=== PATIENT | female | born 1995 | race Caucasian/White ===

== ENCOUNTER → 2019-10-16 15:51 | Outpatient (CLI) | payer OTHER, SELFPAY ==
--- NOTE | 2019-10-16 | DI.MRI.S_ITS ---
PROCEDURE: MR ANKLE LT WO CON INDICATIONS: LATERAL LEFT ANKLE PAIN TECHNIQUE: Noncontrast sagittal T1 spin echo and T2 fast spin echo with fat saturation, axial proton density fast spin echo and T2 fast spin echo with fat saturation, coronal T1 spin echo and T2 fast spin echo with fat saturation through the ankle/hindfoot. COMPARISON: None. FINDINGS: Image quality: Excellent. Bones and joints: No bone marrow contusions or fractures. No hindfoot coalitions. No osteochondral injuries of the talar dome. No pathologic joint effusions. Medial structures: The posterior tibialis, flexor digitorum longus, and flexor hallucis longus tendons are intact. The posterior tibial neurovascular bundle appears normal within the tarsal tunnel, without extrinsic mass effect. The deep layer (anterior and posterior tibiotalar ligaments) and superficial layer (tibionavicular, tibiospring, and tibiocalcaneal ligaments) of the deltoid ligament appear normal. The spring ligament components (superomedial calcaneonavicular, medioplantar oblique calcaneonavicular, and inferoplantar longitudinal ligaments) are intact. Lateral structures: The anterior talofibular, calcaneofibular, and posterior talofibular ligaments appear mildly thickened with intrasubstance T2 hyperintense signal More superiorly, the anterior and posterior tibiofibular ligaments also appears thickened with heterogeneous intrasubstance signal. The tibiofibular syndesmosis is normal in width at 2 mm or less. The peroneus longus and brevis tendons demonstrate a small amount of fluid distending the tendon sheath suggestive of very low-grade tenosynovitis. Adjacent bony peroneal tubercle and retrotrochlear prominence are normal in size. The sinus tarsi demonstrates normal fatty signal, without edema, fibrosis, or cyst formation. Visualized sinus tarsi components (cervical ligament, interosseous talocalcaneal ligament, roots of the inferior extensor retinaculum) appear normal. The calcaneonavicular and calcaneocuboid components of the bifurcate ligament appear intact. The dorsal calcaneocuboid ligament appears intact. Anterior structures: The tibialis anterior, extensor hallucis longus, and extensor digitorum longus tendons appear intact. The dorsal talonavicular ligament appears intact. Posterior and plantar structures: Achilles tendon is intact. Medial and lateral bands of the plantar fascia are of normal thickness. No abductor digiti quinti muscle atrophy to suggest Montiel neuropathy. IMPRESSION: 1. Findings suggestive of low-grade sprain/partial thickness involving lateral ankle ligaments. Ankle mortise is congruent. No widening of distal tibiofibular syndesmosis. 2. Very low-grade tenosynovitis involving peroneus tendons. Rest of the ankle tendons are intact. 3. No marrow edema. No fracture or dislocation. Dictated by: Patrick Aquino M.D. on 10/17/2019 at 10:04 Approved by: Patrick Aquino M.D. on 10/17/2019 at 10:14
== END ==
PROVIDERS: Referring Provider Radiology Diagnostic Radiology; Visit Provider Radiology Diagnostic Radiology
DX: S99.922A Unspecified injury of left foot, initial encounter (principal); M25.572 Pain in left ankle and joints of left foot; X58.XXXA Exposure to other specified factors, initial encounter
CPT/HCPCS: 73721

== ENCOUNTER 2020-12-05 10:56 | Emergency (ER) | payer OTHER, SELFPAY ==
[2020-12-05 11:21] VITALS: BP 122/78; PULSE 86; RESP 16; TEMP 37; O2SAT 98; BMI 30.2
--- NOTE | 2020-12-05 11:21 | DI.RAD.S_ITS ---
PROCEDURE: XR FINGER RT MIN 2V INDICATIONS: slammed in car door TECHNIQUE: AP hand, 2 views of the thumb acquired. COMPARISON: None. FINDINGS: Bones: No fractures or dislocations. No suspicious bony lesions. Soft tissues: No suspicious soft tissue calcifications. IMPRESSION: No acute bony abnormality. Dictated by: Barry Stallings M.D. on 12/05/2020 at 10:36 Approved by: Barry Stallings M.D. on 12/05/2020 at 10:39
--- NOTE | 2020-12-05 12:28 | ED.UPPEXIN ---
HPI - Extremity Injury (Upper) General Chief Complaint: Extremity Injury, Upper Stated Complaint: smashed right thumb in car door Time Seen by Provider: 12/05/20 12:09 Source: patient Mode of arrival: Ambulatory Limitations: no limitations History of Present Illness HPI narrative: Patient is a 25-year-old female who presents with right thumb pain. She slammed his her thumb in the car door last evening. She does have a mild subungual hematoma she is able to move it is quite tender at the tip. She said she was unable to sleep last night due to the throbbing. complaint: injury to: right and finger (Thumb) Review of Systems Review of Systems Narrative: GENERAL: Denies chills,fever HEENT: Denies throat pain RESPIRATORY: Denies dyspnea, cough, wheezing CARDIOVASCULAR: Denies chest pain, palpitations GASTROINTESTINAL: Denies nausea, vomiting MUSCULOSKELETAL: See HPI SKIN: No rash, no laceration, no pruritus NEUROLOGIC: Denies weakness, dizziness, headache, numbness 8 point review of systems is negative except for those stated above and HPI Patient History Medical History ADHD PCOS (polycystic ovarian syndrome) Social History Smoking Status: Never smoker Smoking Status: Never smoker Substance Use Type: does not use Exam Initial Vital Signs Initial Vital Signs: Vital Signs Temperature 98.6 F 12/05/20 11:21 Pulse Rate 86 12/05/20 11:21 Respiratory Rate 16 12/05/20 11:21 Blood Pressure 122/78 12/05/20 11:21 Pulse Oximetry 98 12/05/20 11:21 GENERAL: Well-appearing, well-nourished and in no acute distress. CARDIOVASCULAR: peripheral pulses in tact, cap refill <2 sec RESPIRATORY: No respiratory distress, speaks in full sentences without difficulty EXTREMITIES: Normal range of motion, no clubbing or edema. Neurovascularly intact Right thumb subungual hematoma is that is less than half the nail. She is able to flex at the IP without issue. tenderness at the very distal tip. Cap refill less than 2 second NEUROLOGICAL: Cranial nerves II through XII grossly intact. Normal gait and speech. SKIN: Warm, dry, no petechiae, no rashes or lesions. Course Orders Ordered: ED Orders 12/05/20 11:21 XR finger RT min 2V Stat Vital Signs Vital signs: Vital Signs - 8 hr 12/05/20 11:21 Temperature 98.6 F Pulse Rate 86 Respiratory Rate 16 Blood Pressure 122/78 Pulse Oximetry 98 MDM - Extremity Injury (Upper) Imaging Data Extremity x-ray #1: Radiologist's Impression: PROCEDURE: XR FINGER RT MIN 2V INDICATIONS: slammed in car door TECHNIQUE: AP hand, 2 views of the thumb acquired. COMPARISON: None. FINDINGS: Bones: No fractures or dislocations. No suspicious bony lesions. Soft tissues: No suspicious soft tissue calcifications. IMPRESSION: No acute bony abnormality. Dictated by: Barry Stallings M.D. on 12/05/2020 at 10:36 MDM Narrative Medical decision making narrative: At this time subungual hematoma is less than 50% of the nail in no indication to drain it. X-ray does not reveal any fracture. Conservative treatment is advised Discharge Plan Departure Patient Disposition: Home Clinical Impression: Subungual hematoma Instructions: DI for Subungual Hematoma Activity Restrictions/Additional Instructions: *You have been diagnosed with subungual hematoma *What to do: It will take about 6 months for nail to completely grow out. Expect to be sore over the next few days elevate and ice his 20-30 minutes at a time *Continue to take medications as directed Ibuprofen 800 mg every 8 hours as needed for [id number] pain Tylenol 1000 mg every 6 hours if needed for [id number] pain *Follow up with your primary care provider in 2-3 days *Return to ER if you should have redness pus swelling drainage inability to move mom or any new, worsening or concerning symptoms Referrals: Mame Sheth DO [Non-Staff] -
== END 2020-12-05 12:45 | disposition home or self-care (01) ==
PROVIDERS: Emergency Provider Emergency Medicine
DX: S60.111A Contusion of right thumb with damage to nail, initial encounter (principal); W23.0XXA Caught, crushed, jammed, or pinched between moving objects, initial encounter
CPT/HCPCS: 73140; 99281; 99283